=== PATIENT | male | born 1955 | race Caucasian/White ===

== ENCOUNTER → 2016-07-28 | Outpatient (CLI) | payer OTHER ==
[~2016-07-28] MED LIST: KETO10TA PO; OMEP20CA59 PO; OXYC-57 PO; SIMV40TA2 PO
== END | disposition home or self-care (01) ==
LOC: C.LABPBG 11:38
PROVIDERS: ATTEND Family Medicine
DX: Z11.59 Encounter for screening for other viral diseases (principal); E78.5 Hyperlipidemia, unspecified

== ENCOUNTER → 2016-10-31 | Outpatient (CLI) | payer OTHER ==
--- NOTE | 2016-10-31 13:05 | DIAGNOSTIC IMAGING REPORT ---
RIGHT UPPER EXT JOINT WITHOUT CLINICAL HISTORY: R SHOULDER PAIN, RTC TEAR Right pain TECHNIQUE: Multiaxial MRI acquisition COMPARISON STUDY: None FINDINGS: Signal characteristics the osseous structures demonstrate moderate degenerative change of the acromioclavicular joint. There is moderate hyperplastic change of the joint creating at least a moderate degree of impingement upon the superior superior aspect of the supraspinatus musculotendinous junction . There is a full-thickness tear of the supraspinatus tendon. There is a 1 cm musculotendinous retraction. There is moderate tendinopathy of the residual components of the tendon. The infraspinatus and subscapularis tendons are intact. Biceps tendon is intact. There is a tear of the anterior and inferior glenoid labrum. Posterior labrum shows a partial tear although no major substance loss is appreciated. IMPRESSION: 1. Full-thickness tear supraspinatus tendon with 1 cm muscular tendinous retraction. 2. Hypertrophic change acromioclavicular joint creating moderate impingement. 3. Tear of the anterior inferior, inferior, as well as a small partial tear of the posterior glenoid labrum . The above report was generated using voice recognition software. It may contain grammatical, syntax or spelling errors. Electronically signed by: Ebenezer Chen M.D. 10/31/2016 1:04 PM Dictated Date/Time: 10/31/2016 12:47 PM
== END | disposition home or self-care (01) ==
LOC: C.MRI 11:29
PROVIDERS: ATTEND Orthopaedic Surgery
DX: S46.011A Strain of muscle(s) and tendon(s) of the rotator cuff of right shoulder, initial encounter (principal); M25.811 Other specified joint disorders, right shoulder; X58.XXXA Exposure to other specified factors, initial encounter

== ENCOUNTER → 2016-11-17 | Outpatient (CLI) | payer OTHER ==
[2016-11-17 18:49] LABS: BASO % 0.4 %; BASO ABS # 0.03 K/uL (0-0.2); COMPLETE YES; EOS % 2.8 %; HEMATOCRIT 44.1 % (42-52); IG% 0.2 %; LYMPH % 19.5 %; LYMPH ABS # 1.66 K/uL (1.2-3.4); MEAN CELL VOLUME 86.5 fL (80-100); MEAN CORPUSCULAR HEMOGLOBIN 30.8 pg (25-34); MEAN CORPUSCULAR HGB CONC 35.6 g/dl (32-36); MONO % 8.6 %; NEUT % 68.5 %; PLATELET COUNT 251 K/uL (130-400); WHITE BLOOD COUNT 8.53 K/uL (4.8-10.8)
[2016-11-17 19:12] LABS: BLOOD UREA NITROGEN 21 mg/dl (7-18); BUN/CREATININE RATIO 19.5 (10-20); CALCIUM 9.2 mg/dl (8.5-10.1); CARBON DIOXIDE 29 mmol/L (21-32); CHLORIDE 108 mmol/L (98-107); GLUCOSE 62 mg/dl (70-99); POTASSIUM 3.8 mmol/L (3.5-5.1); SODIUM 141 mmol/L (136-145)
== END | disposition home or self-care (01) ==
LOC: C.CPL 16:25
PROVIDERS: ATTEND Orthopaedic Surgery
DX: Z01.818 Encounter for other preprocedural examination (principal); M75.121 Complete rotator cuff tear or rupture of right shoulder, not specified as traumatic

== ENCOUNTER → 2016-12-14 | Day surgery (SDC) | payer OTHER ==
[2016-12-11 15:37] VITALS: Ht 175.3 cm; Wt 63.6 kg
[~2016-12-14] VITALS: Ht 175.3 cm; Wt 63.6 kg
[~2016-12-14] MED LIST changes: +ATROPINE SULFATE 0.1 MG/ML 5ML SYR IV PRN; +BUPIVACAINE/EPINEPHRINE 0.25% 1:200,000 30 ML VIAL ONE; +CEFAZOLIN 2000 MG/60 ML D5W IV SCH; +DEXAMETHASONE SOD INJ 4 MG/ML VIAL ONE; +EpHEDrine SULFATE INJ 50 MG/ML AMP IV PRN; +EpHEDrine SULFATE INJ 50 MG/ML AMP ONE; +EpINEphrine INJ 1MG/ML AMP 1 MG/ML AMP ONE; +FENTANYL CITRATE INJ 50 MCG/1 ML 2 ML VIAL IV PRN; +FENTANYL CITRATE INJ 50 MCG/1 ML 2 ML VIAL ONE; +LACTATED RINGER'S 1000ML 1,000 ML IV SCH; +LIDOCAINE HCL 2% 2 ML VIAL (20MG/ML) ONE; +MIDAZOLAM HCL 1 MG/ML 2ML VIAL ONE; +ONDANSETRON INJ 2 MG/ML 2 ML VIAL IV PRN; +ONDANSETRON INJ 2 MG/ML 2 ML VIAL ONE; +OXYCODONE/ACETAMINOPHEN 5-325 TAB PO PRN; +PROPOFOL IV EMULSION 10 MG/ML 20 ML VIAL IV ONE; +ROPIVACAINE 0.5% 5 MG/ML 30 ML VIAL ONE; +SODIUM CHLORIDE 0.9% 1000ML 1,000 ML IV SCH; +SODIUM CHLORIDE 0.9% INJ 10 ML VIAL ONE
--- NOTE | 2016-12-14 06:48 | History & Physical Bridge - SC ---
H&P Re-Evaluation Bridge Note: I have examined the patient, reviewed the History & Physical and in the interval since the performance of the History & Physical I have noted the following changes of clinical significance: No changes noted
--- NOTE | 2016-12-14 12:41 | Discharge Instructions-SurgCtr ---
Discharge Instructions Date of Service Dec 14, 2016. Visit Reason for Visit: Right Shoulder Full Thickness Rotator Cuff Tear Discharge Discharge Diagnosis / Problem: SAME ABOVE Discharge Goals Goal(s): Decrease discomfort, Improve function Activity Recommendations Activity Limitations: as noted below Lifting Limitations: until after follow-up appointment Exercise/Sports Limitations: until after follow-up appointment Shower/Bathe: tomorrow Anesthesia . Post Anesthesia Instructions: If you have had General Anesthesia or IV Sedation: * Do not drive today. * Resume driving when surgeon permits. * Do not make important decisions or sign legal documents today. * Call surgeon for: 1. Temperature elevations greater than 101 degrees F. 2. Uncontrollable pain. 3. Excessive bleeding. 4. Persistent nausea and vomiting. 5. Medication intolerance (nausea, vomiting or rash). * For nausea and vomiting use only clear liquids such as: tea, soda, bouillon until nausea subsides, then gradually increase diet as tolerated. * If you have any concerns or questions, call your surgeon's office. If physician is unavailable and it is an emergency, call 911 or go to the nearest emergency room. . Instructions / Follow-Up Instructions / Follow-Up MEDICATIONS: * Resume previous medications unless instructed otherwise by your surgeon. * Always take pain medication on a full stomach or with food to avoid upset stomach. * Do not drink alcohol or drive while taking narcotics. * Ibuprofen or Tylenol may be taken if narcotic not needed. SPECIAL CARE INSTRUCTIONS: __ None _X_ Keep extremity elevated and iced x 48 hours; apply ice 20-30 minutes 8-10 times/day. May remove at night. __ Sling __24 hrs/day __ Remove at night _X_ Shoulder Immobilizer (MAY REMOVE AFTER 48 HOURS ONLY TO SHOWER AND FOR THERAPY) _X_ 24 hrs/day __ Remove at night _X_ Dressing __ Maintain until seen in office, may shower with plastic over site _X_ Remove dressings in 24-48 hours and then may shower _X_ Cover incisions with band-aids after showering __ Do not remove steri-strips Call physician if chills or temperature rises above 102 degrees or pain unrelieved by prescribed pain medications at . . Diet Recommendations Home Diet: no limitations Fluid Restriction: None Procedures Procedures Performed: Right Shoulder Arthroscopy, Medium Rotator Cuff Repair, Acromioplasty, Biceps Tenodesis Pending Studies Studies pending at discharge: no Work Instructions Return To Work: after follow-up Lifting Limitations: NO LIFTING WITH RIGHT ARM Medical Emergencies . Who to Call and When: Medical Emergencies: If at any time you feel your situation is an emergency, please call 911 immediately. . Non-Emergent Contact Non-Emergency issues call your: Primary Care Provider Call Non-Emergent contact if: you have a fever, temperature is above 101.5 . . "Provider Documentation" section prepared by Isaak Ladd. .
--- NOTE | 2016-12-14 13:38 | Anesthesiology Progress Note ---
Anesthesia Post Op Note Date & Time Dec 14, 2016 at 13:38 Vital Signs Pain Intensity: 0 Vital Signs Past 12 Hours Date Time Temp Pulse Resp B/P (MAP) Pulse Ox O2 Delivery O2 Flow Rate FiO2 12/14/16 13:21 36.5 68 16 132/90 97 Room Air 12/14/16 13:15 133/91 12/14/16 13:14 69 14 12/14/16 13:14 14 12/14/16 13:10 134/83 12/14/16 13:09 70 13 96 12/14/16 13:09 70 13 12/14/16 13:06 133/92 12/14/16 13:04 71 16 12/14/16 13:04 71 16 97 12/14/16 13:00 138/89 12/14/16 12:59 68 13 96 12/14/16 12:59 69 13 12/14/16 12:55 141/90 12/14/16 12:54 69 13 96 12/14/16 12:54 69 13 12/14/16 12:51 139/92 12/14/16 12:49 66 11 98 12/14/16 12:49 65 11 12/14/16 12:45 143/91 12/14/16 12:44 73 19 98 12/14/16 12:44 73 19 12/14/16 12:43 71 16 98 12/14/16 12:43 71 16 12/14/16 12:40 146/101 12/14/16 12:39 146/100 12/14/16 12:38 36.0 71 12 146/100 98 Mask 6 12/14/16 10:48 48 6 97 12/14/16 10:48 48 12/14/16 10:47 62 12/14/16 10:47 64 8 97 12/14/16 10:46 101/76 12/14/16 10:45 63 7 97 12/14/16 10:45 59 12/14/16 10:41 102/78 12/14/16 10:40 50 12/14/16 10:40 49 12 98 12/14/16 10:35 61 10 118/77 96 12/14/16 10:35 61 12/14/16 10:30 51 10 113/79 98 12/14/16 10:30 52 12/14/16 10:28 117/77 12/14/16 09:30 36.7 55 16 111/78 (89) 98 Room Air Notes Mental Status: alert / awake / arousable, participated in evaluation Pt Amnestic to Procedure: Yes Nausea / Vomiting: adequately controlled Pain: adequately controlled Airway Patency, RR, SpO2: stable & adequate BP & HR: stable & adequate Hydration State: stable & adequate Anesthetic Complications: no major complications apparent
[2016-12-14 13:56] VITALS: BP 135/84; PULSE 65; O2SAT 98
--- NOTE | 2016-12-14 14:52 | [facility] Post Operative Brief Note ---
Immediate Operative Summary Operative Date Dec 14, 2016. Pre-Operative Diagnosis Right shoulder medium rotator cuff tear Post-Operative Diagnosis Same as preop Procedure(s) Performed Right Shoulder Arthroscopy, Medium Rotator Cuff Repair, Acromioplasty, Biceps Tenodesis Surgeon Dr. Alarcon Learning Disabilities Resource Teacher Surgeon(s) Isaak Ladd PA-C Estimated Blood Loss 5ml Findings as above Specimens None Complication(s) None Disposition Recovery Room / PACU
--- NOTE | 2016-12-14 21:15 | OPERATIVE REPORT ---
DATE OF OPERATION: 12/14/2016 PREOPERATIVE DIAGNOSES: Severe external impingement and a medium sized rotator cuff tear of the right shoulder. POSTOPERATIVE DIAGNOSES: Same. PROCEDURES: Right shoulder diagnostic arthroscopy with limited debridement, distal clavicle resection to include co-planing the undersurface of the clavicle, acromioplasty, medium sized rotator cuff repair and arthroscopic biceps tenodesis. SURGEON: Dr. Keo Alarcon. BOBTAILER: Mejia Ladd PA-C, whose assistance was necessary for positioning the arm and helping with instrumentation. ANESTHESIA: General with a right interscalene nerve block. COMPLICATIONS: None. CONDITION: Stable to PACU. INDICATIONS: Christian is a pleasant 61-year-old male who has been dealing with a 1-year history of right shoulder pain. MRI and clinical examination show severe external impingement and medium sized rotator cuff tear. After failing conservative treatment, he elected to undergo arthroscopy. DESCRIPTION OF PROCEDURE: On 12/14/2016, he arrived at [facility] for the above procedure. He was seen in the preoperative holding area and the operative extremity was identified and signed. He was given a preoperative antibiotic and right interscalene nerve block. He was taken back to the operating room, laid on the table in supine position and put under general anesthesia. He was then put into the beach chair position. The right shoulder was prepped and draped in sterile fashion. Time-out was done and the patient and operative extremity was properly identified. A scope was introduced into the posterior portal. Diagnostic arthroscopy showed no cartilage damage to the humeral head or the glenoid. There was some scarring of the anterior labrum. The biceps tendon was generally intact. There was a tear of the entire supraspinatus that extended into the biceps petey mechanism. There was a complex tear. It had torn directly off the articular footprint. The infraspinatus, teres minor and subscapularis were all checked and intact. An anterior portal was made. A shaver was used to do a limited debridement of the intraarticular structures and the biceps tendon was arthroscopically tenotomized. The scope was put into the subacromial space. A lateral portal was made. A shaver was used to do a complete subacromial and subdeltoid bursectomy. An ablator was used to tease the coracoacromial ligament off the undersurface of the acromion and a 5-0 kymberly was used to complete an acromioplasty of a very large Bigliani type 3 acromion. A shaver was used to remove any excess debris. Attention was turned to the distal clavicle. There were large osteophytes off the undersurface of the clavicle. A 5-0 kymberly was used to resect these osteophytes off the distal clavicle to open up the supraspinatus outlet. Attention was then turned to the rotator cuff. An additional anterolateral portal was made and Nia cannulas were placed in each of the lateral portals. There was a complex tear that was torn directly off the medial articular footprint of the tuberosity. Two 4.75-mm BioComposite SwiveLock suture anchors were placed along the medial row. The anchors were loaded with FiberTapes and the tapes were passed through the tendon at the anticipator articular margin. The tape from each anchor was brought down to 1 of 2 lateral row SwiveLock suture anchors. This gave a nice knotless SpeedBridge repair. Multiple pictures were taken. The long head of the biceps tendon was tagged with a FiberLink earlier and incorporated into the anterior medial anchor to complete a biceps tenodesis. The scope was put back into the glenohumeral joint and the articular margin of the rotator cuff had been restored. Multiple pictures were taken. Arthroscopic instruments removed from the shoulder. Portal sites were closed with 3-0 nylon. He was then placed in a soft dressing and an abduction arm sling. He was then extubated, transferred to a [facility] and taken to the postanesthesia care unit in stable condition. He tolerated the procedure well. I attest to the content of the Intraoperative Record and any orders documented therein. Any exceptions are noted below. LISSETTE
== END | disposition home or self-care (01) ==
LOC: X.SURG 09:05
PROVIDERS: ATTEND Orthopaedic Surgery
DX: M75.41 Impingement syndrome of right shoulder (principal); M75.111 Incomplete rotator cuff tear or rupture of right shoulder, not specified as traumatic; E78.00 Pure hypercholesterolemia, unspecified; Z79.899 Other long term (current) drug therapy